=== PATIENT | female | born 1945 | race Caucasian/White ===

== ENCOUNTER → 2018-04-26 13:32 | Outpatient (CLI) | payer BC | END | disposition home or self-care (01) | LOC: D.MRI 13:32 | DX: S32.020A Wedge compression fracture of second lumbar vertebra, initial encounter for closed fracture (principal); X58.XXXA Exposure to other specified factors, initial encounter ==

== ENCOUNTER 2018-12-14 22:03 | Inpatient (IN) | payer BC, MEDICARE ==
[~2018-12-14] VITALS: Ht 167.6 cm; Wt 70.3 kg
[2018-12-14] MEDS ORDERED: ZANAFLEX4 MG PO (22:23)
[2018-12-14] MEDS ORDERED: METOPROLOL TART50 MG PO (22:23)
[2018-12-14] MEDS ORDERED: COZAAR25 MG PO (22:24)
[2018-12-14 23:21] LABS: BASOPHILS 0.2 % (0-2); EOSINOPHILS 2.3 % (0-7); HEMATOCRIT 40.7 % (36.0-48.0); HEMOGLOBIN 14.4 g/dL (12-16); LYMPHOCYTES 22.5 % (15-50); MCH 33.1 pg (26.0-34.0); MCHC 35.4 g/dL (31.0-37.0); MCV 93.6 fL (80.0-100.0); MEAN PLATELET VOLUME 10.3 fL (7.4-10.4); MONOCYTES 11.8 % (2-11); NEUTROPHILS 62.2 % (40-80); PLATELET COUNT 211 10x3/uL (130-400); RBC 4.35 10x6/uL (4.00-5.40); RDW 12.9 % (11.5-14.5); WBC 8.2 10x3/uL (4.8-10.8)
[2018-12-14 23:25] LABS: APTT 24.4 SECONDS (22.8-39.4); INR 1.02 (0.85-1.17); PROTIME 12.9 SECONDS (11.6-15.0)
[2018-12-14 23:27] VITALS: BP 94/48
[2018-12-14 23:35] LABS: ALKALINE PHOSPHATASE 88 U/L (46-116); ALT (SGPT) 109 U/L (10-68); BILIRUBIN - TOTAL 0.52 mg/dL (0.2-1.3); CALC OSMOLALITY 260 mosm/kg (275-300); CALCIUM 9.2 mg/dL (8.5-10.1); CHLORIDE - SERUM 94 mmol/L (98-107); CREATININE - SERUM 1.2 mg/dL (0.6-1.3); GLUCOSE 187 mg/dL (74-106); POTASSIUM - SERUM 3.7 mmol/L (3.5-5.1); PROTEIN - SERUM 6.9 g/dL (6.4-8.2); SODIUM 127 mmol/L (136-145); UREA NITROGEN 15 mg/dL (7-18); eGFR NON AFRICAN AMERICAN 47 mL/min (90-120)
[2018-12-14 23:40] VITALS: BP 102/69
[2018-12-14 23:46] LABS: CKMB 0.7 U/L (0.0-3.6); CREATINE KINASE 21 UL (21-215); MAGNESIUM - SERUM 1.7 mg/dL (1.8-2.4); TROPONIN-I < 0.017 ng/mL (0.000-0.060)
[2018-12-14 23:52] VITALS: BP 144/80
[2018-12-15] VITALS (10 sets, daily range): BP systolic 112–166; BP diastolic 56–81; BMI 25.0
--- NOTE | 2018-12-15 02:30 | NUR ---
PATIENT TO THE FLOOR. ASSISTED IN TRANSFERING PATIENT TO BED FROM ER BED. PATIENT UNABLE TO MOVE ALONE AT THIS TIME. PATIENT A&O X4. CALL LIGHT WITHIN REACH AND BED IN LOWEST POSITION. KHANH ALARM IS ON THE BED AND TURNED ON AT THIS TIME.
--- NOTE | 2018-12-15 04:54 | NUR ---
PATIENT LAYING IN BED AWAKE UPON ENTERING ROOM. PATIENT STATES SHE WISHES SHE COULD JUST FALL ASLEEP. PATIENT DENIES ANY NEEDS AT THIS TIME. CALL LIGHT WITHIN REACH AND BED IN LOWEST POSITION.
[2018-12-15 06:29] LABS: BASOPHILS 0.4 % (0-2); EOSINOPHILS 1.8 % (0-7); HEMATOCRIT 39.1 % (36.0-48.0); HEMOGLOBIN 13.2 g/dL (12-16); IMMATURE GRANULOCYTES 0.7 % (0-5); LYMPHOCYTES 18.3 % (15-50); MCH 31.9 pg (26.0-34.0); MCHC 33.8 g/dL (31.0-37.0); MCV 94.4 fL (80.0-100.0); MEAN PLATELET VOLUME 10.4 fL (7.4-10.4); MONOCYTES 11.1 % (2-11); NEUTROPHILS 67.7 % (40-80); PLATELET COUNT 183 10x3/uL (130-400); RBC 4.14 10x6/uL (4.00-5.40); RDW 13.2 % (11.5-14.5); WBC 8.3 10x3/uL (4.8-10.8)
[2018-12-15 06:44] LABS: CALC OSMOLALITY 264 mosm/kg (275-300); CALCIUM 8.7 mg/dL (8.5-10.1); CARBON DIOXIDE 27.1 mmol/L (21.0-32.0); CHLORIDE - SERUM 99 mmol/L (98-107); POTASSIUM - SERUM 4.2 mmol/L (3.5-5.1); SODIUM 131 mmol/L (136-145); TROPONIN-I < 0.017 ng/mL (0.000-0.060); UREA NITROGEN 16 mg/dL (7-18); eGFR NON AFRICAN AMERICAN 58 mL/min (90-120)
[2018-12-15 06:53] LABS: GLUCOSE 122 mg/dL (74-106)
--- NOTE | 2018-12-15 07:25 | NUR ---
PT RESTING IN BED, ALERT AND ORIENTED. RIB FX TO LEFT CHEST. SKIN TEAR TO LEFT ELBOW, DRESSING C/D/I. O2 @ 2L, NC. IV TO RIGHT WRIST, SL. SITE PATENT WITHOUT REDNESS OR SWELLING. C/O PAIN, GAVE NORCO FOR PAIN. NO S/S OF ACUTE DISTRESS NOTED. PT DENIES ANYTHING FURTHER AT THIS TIME. CALL LIGHT IN REACH. WILL CONTINUE TO MONITOR.
--- NOTE | 2018-12-15 16:40 | NUR ---
I have reviewed this patient and I concur with the Shift Assessment completed by the Licensed Practical Nurse today this shift.
--- NOTE | 2018-12-15 20:09 | NUR ---
PT ALERT X 4. BREATH SOUNDS CLEAR BILAT, 2L O2 PER NC. IV TO RIGHT WRIST, SALINE LOCKED. PT REPORTING PAIN OF 10/10, MEDICATED PER ORDERS, WILL MONITOR. BED LOW, CALL LIGHT IN REACH. NO OTHER NEEDS AT THIS TIME.
[2018-12-16] VITALS: BP 165/91
[2018-12-16 03:00] LABS: APPEARANCE CLEAR (CLEAR); BILIRUBIN NEGATIVE (NEGATIVE); COLOR YELLOW (YELLOW); GLUCOSE 100 mg/dL (NEGATIVE); KETONE NEGATIVE (NEGATIVE); NITRITE NEGATIVE (NEGATIVE); PROTEIN NEGATIVE (NEGATIVE); UROBILINOGEN NORMAL (NORMAL)
[2018-12-16 03:01] LABS: BACTERIA MODERATE /hpf (NONE SEEN); EPITHELIAL CELLS 0-5 /hpf (0-5); RED CELLS - URINE 0-5 /hpf (0-5)
[2018-12-16 04:00] VITALS: BP 180/105
[2018-12-16 07:28] LABS: BASOPHILS 0.1 % (0-2); EOSINOPHILS 0.3 % (0-7); HEMATOCRIT 38.8 % (36.0-48.0); HEMOGLOBIN 13.5 g/dL (12-16); IMMATURE GRANULOCYTES 0.7 % (0-5); LYMPHOCYTES 12.7 % (15-50); MCH 32.5 pg (26.0-34.0); MCHC 34.8 g/dL (31.0-37.0); MCV 93.5 fL (80.0-100.0); MEAN PLATELET VOLUME 10.7 fL (7.4-10.4); MONOCYTES 12.1 % (2-11); NEUTROPHILS 74.1 % (40-80); PLATELET COUNT 158 10x3/uL (130-400); RBC 4.15 10x6/uL (4.00-5.40); WBC 6.9 10x3/uL (4.8-10.8)
[2018-12-16 07:48] LABS: CALCIUM 8.8 mg/dL (8.5-10.1); CARBON DIOXIDE 25.6 mmol/L (21.0-32.0); CREATININE - SERUM 0.9 mg/dL (0.6-1.3); POTASSIUM - SERUM 3.6 mmol/L (3.5-5.1)
--- NOTE | 2018-12-16 07:50 | NUR ---
PT RESTING IN BED WITH EYES CLOSED. NO ACUTE DISTRESS NOTED AT THIS TIME. REPORTS PAIN 3/10 AT THIS TIME. REPORTS DISCOMFORT TO LEFT SIDE. SALINE LOC TO RIGHT WRIST, SITE WITHOUT REDNESS OR EDEMA. DENIES FURTHER NEEDS AT THIS TIME. CL WITHIN REACH. ENCOURAGED TO CALL WITH NEEDS. CONTINUE POC
[2018-12-16 08:47] VITALS: BP 156/90
[2018-12-16 14:10] VITALS: BP 149/88
[2018-12-16 16:03] VITALS: BP 148/78
[2018-12-16 20:00] VITALS: BP 159/87
--- NOTE | 2018-12-16 21:00 | NUR ---
PT COMPLAINING OF N/V GIVEN ZOFRAN WILL FALLOW UP. PT STATES SHE HAS NOT BEEN EATING THE LAST FEW DAYS BECAUSE OF THE N/V.
--- NOTE | 2018-12-16 21:30 | NUR ---
PT FEELING BETTER GIVEN JELLO SINCE HER N/V HAS STOPPED FOR THE TIME BEING. PT STATES JELLO STAYED DOWN JUST FINE NO NAUSEA AT THIS TIME.
--- NOTE | 2018-12-16 21:42 | NUR ---
PT UNABLE EXHALE 750 ON IS TX GIVEN ON METANEB DEVICE
--- NOTE | 2018-12-16 23:39 | NUR ---
CHANGED ELBOW DRESSING. PT TOLERATED WELL. SITE HAS STOPPED BLEEDING. WILL FALLOW UP.
[2018-12-17] VITALS: BP 161/82
[2018-12-17 04:00] VITALS: BP 143/80
--- NOTE | 2018-12-17 06:30 | NUR ---
I have reviewed this patient and I concur with the Shift Assessment completed by the Licensed Practical Nurse today this shift.
[2018-12-17 06:42] LABS: CALCIUM 8.1 mg/dL (8.5-10.1); CARBON DIOXIDE 28.3 mmol/L (21.0-32.0); CHLORIDE - SERUM 89 mmol/L (98-107); GLUCOSE 149 mg/dL (74-106); POTASSIUM - SERUM 3.4 mmol/L (3.5-5.1); SODIUM 124 mmol/L (136-145)
[2018-12-17 06:44] LABS: CALC OSMOLALITY 251 mosm/kg (275-300); CREATININE - SERUM 0.5 mg/dL (0.6-1.3); UREA NITROGEN 9 mg/dL (7-18); eGFR NON AFRICAN AMERICAN > 90 mL/min (90-120)
[2018-12-17 06:58] LABS: BASOPHILS 0.3 % (0-2); HEMATOCRIT 35.9 % (36.0-48.0); HEMOGLOBIN 12.7 g/dL (12-16); IMMATURE GRANULOCYTES 0.5 % (0-5); LYMPHOCYTES 14.6 % (15-50); MCH 32.3 pg (26.0-34.0); MCHC 35.4 g/dL (31.0-37.0); MEAN PLATELET VOLUME 10.8 fL (7.4-10.4); MONOCYTES 14.7 % (2-11); NEUTROPHILS 68.9 % (40-80); PLATELET COUNT 157 10x3/uL (130-400); RBC 3.93 10x6/uL (4.00-5.40); RDW 12.8 % (11.5-14.5); WBC 7.9 10x3/uL (4.8-10.8)
[2018-12-17 07:20] LABS: MCV 91.3 fL (80.0-100.0)
[2018-12-17 08:29] VITALS: BP 139/94
[2018-12-17 13:32] VITALS: BP 153/97
--- NOTE | 2018-12-17 15:45 | MORECARE ---
CASE MANAGEMENT DISCHARGE SUMMARY PATIENT: SOLEDAD ANDINO UNIT: [id number] ADM DATE: 12/17/18 AGE: 73 : [birth year] SEX: F ROOM/BED: D.2231 AUTHOR: GALE MYERS PHYSICIAN: REFERRING PHYSICIAN: WOO MAIER MD DATE OF SERVICE: 12/17/18 Discharge Plan Patient Name: SOLEDAD ANDINO Facility: [facility]:[place] : 1945 Planned Disposition: Home Anticipated Discharge Date: Discharge Date: Expected LOS: Initial Reviewer: [email or web address] Initial Review Date: 12/17/2018 Generated: 12/17/18 4:44 pm Patient Name: SOLEDAD ANDINO Page 11041 at 1549 All edits/amendments must be made on the electronic document DICTATION DATE: 12/17/18 1544 CORPORATE BANKING OFFICER: CARLENE 12/17/18 1544 RPT#: [id number] DC DATE: STATUS: ADM IN [facility] [address] [place] [address] END OF REPORT
--- NOTE | 2018-12-17 15:53 | MORECARE ---
CASE MANAGEMENT DISCHARGE SUMMARY PATIENT: SOLEDAD HERNANDEZ UNIT: [id number] ADM DATE: 12/17/18 AGE: 73 : 47 SEX: F ROOM/BED: D.2231 AUTHOR: LOUIS,DOC PHYSICIAN: REFERRING PHYSICIAN: WOO MAIER MD DATE OF SERVICE: 12/17/18 Discharge Plan Patient Name: SOLEDAD HERNANDEZ Facility: [facility]:[place] : 1945 Planned Disposition: Home Anticipated Discharge Date: Discharge Date: Expected LOS: Initial Reviewer: [email or web address] Initial Review Date: 12/17/2018 Generated: 12/17/18 4:52 pm Comments DCP- Discharge Planning Updated by [email or web address]: Liz Sinclair on 12/17/18 2:[address] Patient Name: SOLEDAD HERNANDEZ Admission Status: ER Accout number: [id number] Admission Date: 12-17-2018 : 1945 Admission Diagnosis: Attending: WOO MAIER Current LOS: 1 Anticipated DC Date: Planned Disposition: Home Primary Insurance: [employer] [facility] Discharge Planning Comments: CM met with patient to complete initial dc planning assessment. CM educated patient on the CM role and verbal consent given by patient to complete assessment. Patient's is in the room and she gives permission to speak with in room. Patient lives at home with her . At discharge patient plans to return and feels this is a safe discharge. CM discussed availability of home health, rehab services, and medical equipment. Patient denied known discharge needs at this time. I informed her if she changed her mind on home health to let case management know prior to discharge. CM will continue to follow and will assist as needed with dc plans/needs. Detail Maker And Fitter: Liz Sinclair DCPIA - Discharge Planning Initial Assessment Updated by [email or web address]: Liz Sinclair on 12/17/18 3:46 pm * Is the patient Alert and Oriented? Yes * How many steps to enter\exit or inside your home? 0/1flight * PCP Dr. Lagunas * Pharmacy [facility] * Preadmission Environment Home with Family * ADLs Independent * Equipment Elevated Tol[place] Seat Other Walker * Other Equipment Lift chair * List name and contact numbers for known caregivers / representatives who currently or will assist patient after discharge: Tru Hernandez - spouse - [phone] Hamzah Nation - son - [phone] * Verbal permission to speak to the caregivers and representatives has been obtained from the patient. Yes * Community resources currently utilized None * Additional services required to return to the preadmission environment? No * Can the patient safely return to the preadmission environment? Yes * Has this patient been hospitalized within the prior 30 days at any hospital? No Last DP export: 12/17/18 2:44 pm Patient Name: SOLEDAD HERNANDEZ Page [phone] at 1553 All edits/amendments must be made on the electronic document DICTATION DATE: 12/17/181551 DRAMATIC COACH: CARLENE 12/17/181551 RPT#: [id number] DC DATE: STATUS: ADM IN [facility] [address] [place] [address] END OF REPORT
[2018-12-17 18:19] VITALS: BP 114/61
[2018-12-17 21:13] VITALS: BP 132/80
--- NOTE | 2018-12-18 00:10 | NUR ---
PT RESTING IN BED. EYES CLOSED. NO SIGNS OF DISTRESS. BREATHING EVEN AND UNLABORED. 2LO2 NASAL CANNULA. WILL CONTINUE PLAN OF CARE. CALL LIGHT IN REACH. BED LOWERED AND LOCKED. KHANH ALARM ON. BED RAILS UP X3.
[2018-12-18 05:10] VITALS: BP 156/106
[2018-12-18 07:05] LABS: BASOPHILS 0.2 % (0-2); EOSINOPHILS 1.7 % (0-7); HEMATOCRIT 37.2 % (36.0-48.0); HEMOGLOBIN 13.6 g/dL (12-16); IMMATURE GRANULOCYTES 0.6 % (0-5); LYMPHOCYTES 12.9 % (15-50); MCH 32.9 pg (26.0-34.0); MCHC 36.6 g/dL (31.0-37.0); MCV 90.1 fL (80.0-100.0); MEAN PLATELET VOLUME 10.7 fL (7.4-10.4); MONOCYTES 13.1 % (2-11); NEUTROPHILS 71.5 % (40-80); PLATELET COUNT 180 10x3/uL (130-400); RBC 4.13 10x6/uL (4.00-5.40); RDW 12.5 % (11.5-14.5); WBC 8.1 10x3/uL (4.8-10.8)
[2018-12-18 07:20] LABS: CARBON DIOXIDE 25.4 mmol/L (21.0-32.0); CREATININE - SERUM 0.5 mg/dL (0.6-1.3); GLUCOSE 143 mg/dL (74-106); UREA NITROGEN 11 mg/dL (7-18); eGFR NON AFRICAN AMERICAN > 90 mL/min (90-120)
[2018-12-18 07:21] LABS: CALC OSMOLALITY 238 mosm/kg (275-300); CHLORIDE - SERUM 85 mmol/L (98-107)
[2018-12-18 07:22] LABS: SODIUM 118 mmol/L (136-145)
--- NOTE | 2018-12-18 08:02 | NUR ---
ALERT AND ORIENTED X 3. LUNGS CLEAR BILATERALLY IN ALL [place]. HEART SOUNDS S1 AND S2 HEARD IN ALL [place]. BOWEL SOUNDS ACTIVE X 4. SKIN INTACT WITHOUT REDNESS. STATES IS VERY NAUSEAS. PRN ZOFRAN GIVEN. VITALS TAKEN. BP 142/100. HR VARYING BETWEEN 100 TO 150. ELVA CEDILLO NOTIFIED AND STAT EKG ORDERED. TELEMETRY PLACED ON PATIENT. WILL CONTINUE MONITORING.
--- NOTE | 2018-12-18 08:06 | NUR ---
PATIENT ABLE TO TAKE LOPRESSOR BUT REFUSED OTHER AM MEDICATIONS.
--- NOTE | 2018-12-18 08:30 | NUR ---
CARDIOLOGY CONSULT PLACE AND CARDIOLOGY CALLED.
[2018-12-18 08:45] VITALS: BP 148/100
--- NOTE | 2018-12-18 08:55 | NUR ---
ELVA CEDILLO NOTIFIED PATIENT SODIUM LEVEL 118
--- NOTE | 2018-12-18 09:22 | NUR ---
PATIENT SEEN BY ELVA CEDILLO. CARDIOLOGY PAGED. WAITING CALL BACK.
--- NOTE | 2018-12-18 09:28 | NUR ---
SPOKE WITH DR BROWN PER PHONE. 0.25 DIGOXIN IV ORDERED
--- NOTE | 2018-12-18 09:57 | NUR ---
HR DECREASE FROM 136 TO 77 AFTER DIGOXIN. WILL CONTINUE TO MONITOR.
[2018-12-18 10:35] LABS: CKMB 2.5 U/L (0.0-3.6); CREATINE KINASE 51 UL (21-215); TROPONIN-I < 0.017 ng/mL (0.000-0.060)
[2018-12-18 12:41] VITALS: BP 133/78
[2018-12-18 13:04] VITALS: Ht 167.6 cm; Wt 70.3 kg
--- NOTE | 2018-12-18 13:52 | NUR ---
RESTING IN BED. DENIES PAIN. DENIES NEEDS. WILL CONTINUE TO MONITOR.
[2018-12-18 16:18] VITALS: BP 162/89
[2018-12-18 17:13] LABS: CALC OSMOLALITY 244 mosm/kg (275-300); CALCIUM 8.2 mg/dL (8.5-10.1); CARBON DIOXIDE 25.9 mmol/L (21.0-32.0); CHLORIDE - SERUM 86 mmol/L (98-107); CREATININE - SERUM 0.7 mg/dL (0.6-1.3); GLUCOSE 131 mg/dL (74-106); POTASSIUM - SERUM 4.4 mmol/L (3.5-5.1); UREA NITROGEN 21 mg/dL (7-18); eGFR NON AFRICAN AMERICAN 87 mL/min (90-120)
[2018-12-18 17:16] LABS: SODIUM 119 mmol/L (136-145)
--- NOTE | 2018-12-18 17:25 | NUR ---
SPOKE WITH DR GARCIA ABOUT PT CL SODIUM 119. STATED GIVE AN EXTRA TAB 1MG SODIUM.
[2018-12-18 17:27] LABS: CKMB 2.6 U/L (0.0-3.6); CREATINE KINASE 46 UL (21-215); TROPONIN-I 0.017 ng/mL (0.000-0.060)
[2018-12-18 19:51] VITALS: BP 152/80
--- NOTE | 2018-12-18 20:00 | NUR ---
ALERT RESTING IN BED FAMILY AT BEDSIDE, DENIES NEEDS AT THIS TIME, CALL KARUNA MILAN
--- NOTE | 2018-12-18 21:15 | NUR ---
PORSHA PERAZA WITH FAMILY, TOLERATIGN WELL
[2018-12-18 22:11] LABS: CALC OSMOLALITY 245 mosm/kg (275-300); CALCIUM 8.5 mg/dL (8.5-10.1); CARBON DIOXIDE 26.7 mmol/L (21.0-32.0); CHLORIDE - SERUM 86 mmol/L (98-107); CKMB 2.5 U/L (0.0-3.6); CREATINE KINASE 50 UL (21-215); CREATININE - SERUM 0.8 mg/dL (0.6-1.3); GLUCOSE 146 mg/dL (74-106); POTASSIUM - SERUM 4.4 mmol/L (3.5-5.1); TROPONIN-I 0.019 ng/mL (0.000-0.060); UREA NITROGEN 21 mg/dL (7-18); eGFR NON AFRICAN AMERICAN 75 mL/min (90-120)
[2018-12-18 22:17] LABS: SODIUM 119 mmol/L (136-145)
[2018-12-19 04:54] VITALS: BP 170/83
[2018-12-19 06:30] LABS: BASOPHILS 0.1 % (0-2); EOSINOPHILS 3.1 % (0-7); HEMOGLOBIN 13.1 g/dL (12-16); IMMATURE GRANULOCYTES 0.7 % (0-5); LYMPHOCYTES 13.6 % (15-50); MCH 32.8 pg (26.0-34.0); MCHC 36.4 g/dL (31.0-37.0); MCV 90.2 fL (80.0-100.0); MEAN PLATELET VOLUME 9.9 fL (7.4-10.4); MONOCYTES 13.5 % (2-11); PLATELET COUNT 185 10x3/uL (130-400); RBC 3.99 10x6/uL (4.00-5.40); RDW 12.6 % (11.5-14.5); WBC 6.7 10x3/uL (4.8-10.8)
[2018-12-19 07:01] LABS: CALC OSMOLALITY 242 mosm/kg (275-300); CARBON DIOXIDE 27.3 mmol/L (21.0-32.0); CHLORIDE - SERUM 88 mmol/L (98-107); CREATININE - SERUM 0.7 mg/dL (0.6-1.3); GLUCOSE 124 mg/dL (74-106); POTASSIUM - SERUM 3.8 mmol/L (3.5-5.1); UREA NITROGEN 17 mg/dL (7-18); eGFR NON AFRICAN AMERICAN 87 mL/min (90-120)
[2018-12-19 07:17] LABS: SODIUM 119 mmol/L (136-145)
[2018-12-19 07:47] VITALS: BP 154/89
--- NOTE | 2018-12-19 08:30 | NUR ---
PT AAOX4 RESP EVEN AND NONLABORED, NO SIGNS OF DISTRESS NOTED, FAMILY AT BEDSIDE CL IN REACH
[2018-12-19 09:47] LABS: CALC OSMOLALITY 247 mosm/kg (275-300); CARBON DIOXIDE 27.1 mmol/L (21.0-32.0); CHLORIDE - SERUM 88 mmol/L (98-107); CREATININE - SERUM 0.7 mg/dL (0.6-1.3); GLUCOSE 131 mg/dL (74-106); POTASSIUM - SERUM 3.7 mmol/L (3.5-5.1); SODIUM 121 mmol/L (136-145); UREA NITROGEN 17 mg/dL (7-18); eGFR NON AFRICAN AMERICAN 87 mL/min (90-120)
--- NOTE | 2018-12-19 10:48 | CN ---
PATIENT NAME:SOLEDAD ANDINO MEDICAL RECORD: [id number] : [birth year] LOCATION:D.MS [id number] ADMIT DATE: 12/17/18 ACCOUNT: [id number] CONSULTING PHYSICIAN: MARCELINA BROWN MD REFERRING PHYSICIAN: WOO MAIER MD DATE OF CONSULTATION: 12/18/2018 HISTORY OF PRESENT ILLNESS: A 73-year-old female with no known history of coronary artery disease. She actually was at home, had a syncopal episode. This occurred after taking her blood pressure medicine, taking a hot bath. She typically is quite stable. Easily takes care of all her ADLs. She feels that secondary to the combination as described above, today she had the onset of atrial fibrillation. Responded quite nicely to IV digoxin. She has a remote history of "leaky heart valve in the past." PAST MEDICAL HISTORY: Otherwise includes; 1. History of anxiety, by 's report severe. 2. Hypertension. ALLERGIES: None known. MEDICATIONS: Include Zanaflex 4 mg p.o. every 6 hours p.r.n., losartan 25 every day, metoprolol 25 b.i.d. SOCIAL HISTORY: . Nonsmoker. Easily takes care of all her ADLs. Does try to walk on a regular basis. REVIEW OF SYSTEMS: The patient reports easy bruising but reports no swollen glands. The patient reports no fever, no night sweats, no significant weight gain, no significant weight loss. No significant exercise tolerance. The patient reports no dry eyes, no irritation, no vision change. Patient reports no difficulty hearing and no ear pain. Patient reports no frequent nose bleeds or nose and sinus problems. Patient reports on arm pain on exertion. No shortness of breath while lying down. No history of heart murmur. Patient reports no cough, no wheezing or coughing up blood. Patient reports no abdominal pain, no vomiting. Normal appetite. No diarrhea and not vomiting blood. No nausea and no constipation. Patient reports no incontinence. No difficulty urinating. No hematuria. No increased frequency. Patient reports no muscle aches. No weakness, no arthralgias, no back pain. No swelling of the extremities. Patient reports no abnormal mole, no jaundice, no rashes. Reports no loss of consciousness. No weakness and no numbness. No seizures, dizziness, or headaches. The patient reports no depression, no sleep disturbance, feeling safe in a relationship and no alcohol abuse. Patient reports on fatigue. Reports no runny nose or sinus pressure. No itching, no hives, and no frequent sneezing. PHYSICAL EXAMINATION: GENERAL: Pleasant female, in no acute distress. VITAL SIGNS: Currently pulse 80 and regular, blood pressure 148/100. HEENT: Normocephalic, atraumatic. NECK: No bruits noted. HEART: Regular. Perhaps I/ systolic ejection murmur. LUNGS: Decreased air movement. No wheezing or evidence of consolidation. ABDOMEN: Soft, nontender. EXTREMITIES: Pulses well preserved, 2+. There is no edema. CONSULT REPORT [id number] SOLEDAD ANDINO IMPRESSION: Atrial fibrillation. Responding nicely to digoxin. This may be secondary to increased catacholmine drive from recent fall, etc. We will continue digoxin at least for the short term. Check echocardiogram study. Further recommendations based on the above. TRANSINT:[id number] Voice Confirmation ID: [id number] DOCUMENT ID: [id number] MARCELINA BROWN MD at 1048 CC: [id number] DICTATION DATE: 12/18/18 1114 BEAM SEALER: 12/18/18 1401 ADM IN [facility] [address] [place] [address]
--- NOTE | 2018-12-19 11:35 | NUR ---
TELE CALLED AND SAID PT HR WAS 137 WITH SVT'S AND PVC'S PT WAS GIVEN HER DIGOXIN SCHEDULED WILL CONTINUE TO MONITOR AND CALL THE
--- NOTE | 2018-12-19 12:45 | NUR ---
CALLED TELE AND THEY STATED PT HR WAS BACK DOWN IN THE 70'S TO 80'S
[2018-12-19 13:06] VITALS: BP 124/77
--- NOTE | 2018-12-19 16:00 | NUR ---
PT AMBULATING HALLS WITH AT THIS TIME NO SIGNS OF DISTRESS NOTED
[2018-12-19 16:18] LABS: CALC OSMOLALITY 246 mosm/kg (275-300); CALCIUM 8.3 mg/dL (8.5-10.1); CARBON DIOXIDE 27.1 mmol/L (21.0-32.0); CHLORIDE - SERUM 88 mmol/L (98-107); CREATININE - SERUM 0.6 mg/dL (0.6-1.3); GLUCOSE 119 mg/dL (74-106); SODIUM 121 mmol/L (136-145); UREA NITROGEN 19 mg/dL (7-18); eGFR NON AFRICAN AMERICAN > 90 mL/min (90-120)
[2018-12-19 17:10] VITALS: BP 153/75
--- NOTE | 2018-12-19 18:00 | NUR ---
CALLED DR GARCIA WITH EKG RESULTS AND HE WANTS THE PT TO START ON AN AMIODRONE DRIP AND CONTACT CARDIO, PAGED DR WALLACE AT THIS TIME HAVE NOT HEARD BACK AT THIS TIME, WILL GET PT TRANSFERRED TO [facility]
--- NOTE | 2018-12-19 18:45 | NUR ---
DR WALLACE CALLED BACK AND SAID HE WAS OKAY WITH WHAT DR GARCIA ORDER FOR THIS PT
--- NOTE | 2018-12-19 19:40 | NUR ---
PT TRANSFERRED TO [place] [id number] WARD
--- NOTE | 2018-12-19 19:42 | NUR ---
PT ARRIVED VIA W/C FROM MED SURG. NO DISTRESS NOTED. SR PER CM HR 101. SPOUSE AT BEDSIDE.
[2018-12-19 20:00] VITALS: BP 154/87
[2018-12-19 21:44] LABS: CALC OSMOLALITY 244 mosm/kg (275-300); CARBON DIOXIDE 28.2 mmol/L (21.0-32.0); CHLORIDE - SERUM 87 mmol/L (98-107); CREATININE - SERUM 0.7 mg/dL (0.6-1.3); GLUCOSE 125 mg/dL (74-106); POTASSIUM - SERUM 3.9 mmol/L (3.5-5.1); UREA NITROGEN 19 mg/dL (7-18); eGFR NON AFRICAN AMERICAN 87 mL/min (90-120)
[2018-12-19 21:48] LABS: SODIUM 120 mmol/L (136-145)
--- NOTE | 2018-12-19 22:38 | NUR ---
ASSESSMENT COMPLETED AT 1950 HRS. VSS. ALERT AND ORIENTED TO PERSON, PLACE AND TIME. ALLEN. IV TO L HAND AND LFA SL. LUNGS DIMINISHED IN BASES BILAT. SMALL BRUISE NOTED TO L SCAPULA. LIDOCAINE PATCHES NOTED TO L UPPER BACK. SR PER CM HR 99. CORDARONE BOLUS 150MG/100CC INITIATED 2017 HRS. HR IN 80'S SR AFTER BOLUS. Kirsten SCHAFER APN NOTIFED AT 2039 HRS THAT PT IS IN SR HR 80'S AND IF STILL WANTED CORDARONE DRIP. Kirsten SCHAFER APN STATED TO CALL CARDIOLOGY DR HATHAWAY AT 2042 HRS AND INFORMED OF SITUATION. NEW ORDERS RECEIVED AND NOTED. DIG 0.25 MG GIVEN SIVP OVER 5 MINUTES AT 2101 HRS. PM MEDS GIVEN. DRESSING TO L ELBOW CHANGED AT 2199 HRS. SKIN TEAR NOTED UNDER DRESSING. PT CURRENTLY RESTING WITH EYES CLOSED. RESP EVEN AND REGULAR. LIDOCAINE PATCHES REMOVED FROM L BACK AT PM MED PASS. SR UP X1, CALL LIGHT WITHIN REACH.
[2018-12-20] VITALS: BP 128/76
--- NOTE | 2018-12-20 00:33 | NUR ---
PT RESTING WITH EYES CLOSED. RESP EVEN AND REGULAR. SR UP X2, CALL LIGHT WITHIN REACH.
--- NOTE | 2018-12-20 02:03 | NUR ---
PT RESTING WITH EYES CLOSED. RESP EVEN AND REGULAR. SR UP X2, CALL LIGHT WITHIN REACH.
--- NOTE | 2018-12-20 04:34 | NUR ---
PT RESTING WITH EYES CLOSED. RESP EVEV AND REGULAR. SR UP X2, CALL LIGHT WITHIN REACH.
[2018-12-20 05:20] LABS: BASOPHILS 0.5 % (0-2); EOSINOPHILS 4.6 % (0-7); HEMATOCRIT 35.2 % (36.0-48.0); HEMOGLOBIN 12.6 g/dL (12-16); IMMATURE GRANULOCYTES 0.9 % (0-5); LYMPHOCYTES 24.3 % (15-50); MCH 32.5 pg (26.0-34.0); MCHC 35.8 g/dL (31.0-37.0); MCV 90.7 fL (80.0-100.0); MEAN PLATELET VOLUME 9.6 fL (7.4-10.4); MONOCYTES 15.3 % (2-11); NEUTROPHILS 54.4 % (40-80); PLATELET COUNT 204 10x3/uL (130-400); RBC 3.88 10x6/uL (4.00-5.40); RDW 12.8 % (11.5-14.5); WBC 5.8 10x3/uL (4.8-10.8)
[2018-12-20 05:30] LABS: CALC OSMOLALITY 245 mosm/kg (275-300); CALCIUM 8.2 mg/dL (8.5-10.1); CARBON DIOXIDE 27.8 mmol/L (21.0-32.0); CHLORIDE - SERUM 89 mmol/L (98-107); CREATININE - SERUM 0.7 mg/dL (0.6-1.3); GLUCOSE 92 mg/dL (74-106); POTASSIUM - SERUM 3.9 mmol/L (3.5-5.1); SODIUM 122 mmol/L (136-145); eGFR NON AFRICAN AMERICAN 87 mL/min (90-120)
[2018-12-20 05:35] LABS: UREA NITROGEN 13 mg/dL (7-18)
--- NOTE | 2018-12-20 06:24 | NUR ---
VSS THROUGHOUT NIGHT. SR PER CM. PT STATED SHE RESTED WELL DURING NIGHT. NEEDS MET; WILL CONTINUE TO MONITOR.
[2018-12-20 09:44] VITALS: BP 136/74
[2018-12-20] MEDS ORDERED: KLONOPIN0.5 MG PO (11:59)
[2018-12-20 12:37] VITALS: BP 158/88
[2018-12-20 18:52] VITALS: BP 129/86
--- NOTE | 2018-12-20 19:52 | NUR ---
RESUMING PATIENT CARE. PATIENT IS ALERT AND ORIENTED, RESTING COMFORTABLY IN BED. RESPIRATIONS ARE EVEN AND UNLABORED. NO S/S OF DISTRESS. NO C/O PAIN. CALL LIGHT WITHIN REACH. WILL CPOC.
[2018-12-20 20:00] VITALS: BP 150/82
[2018-12-21] VITALS: BP 138/82
[2018-12-21 04:30] VITALS: BP 138/59
[2018-12-21 06:11] LABS: BASOPHILS 0.5 % (0-2); EOSINOPHILS 5.9 % (0-7); HEMOGLOBIN 12.2 g/dL (12-16); IMMATURE GRANULOCYTES 1.9 % (0-5); LYMPHOCYTES 20.9 % (15-50); MCH 32.1 pg (26.0-34.0); MCHC 34.9 g/dL (31.0-37.0); MCV 92.1 fL (80.0-100.0); MEAN PLATELET VOLUME 9.9 fL (7.4-10.4); MONOCYTES 15.5 % (2-11); NEUTROPHILS 55.3 % (40-80); PLATELET COUNT 225 10x3/uL (130-400); RDW 12.9 % (11.5-14.5); WBC 5.9 10x3/uL (4.8-10.8)
[2018-12-21 06:33] LABS: ALBUMIN 2.4 g/dL (3.4-5.0); ALKALINE PHOSPHATASE 62 U/L (46-116); ALT (SGPT) 32 U/L (10-68); BILIRUBIN - TOTAL 0.69 mg/dL (0.2-1.3); CALC OSMOLALITY 246 mosm/kg (275-300); CALCIUM 8.5 mg/dL (8.5-10.1); CARBON DIOXIDE 27.6 mmol/L (21.0-32.0); CHLORIDE - SERUM 90 mmol/L (98-107); CREATININE - SERUM 0.7 mg/dL (0.6-1.3); GLUCOSE 105 mg/dL (74-106); POTASSIUM - SERUM 3.8 mmol/L (3.5-5.1); PROTEIN - SERUM 5.9 g/dL (6.4-8.2); SODIUM 122 mmol/L (136-145); UREA NITROGEN 14 mg/dL (7-18); eGFR NON AFRICAN AMERICAN 87 mL/min (90-120)
--- NOTE | 2018-12-21 07:15 | NUR ---
RECEIVED PT SITTING IN CHAIR C/O PAIN 5 TO LT BACK/SHOULDER AREA RESP UNLABORED SKIN W/D COLOR WNL WILL CONTINUE TO MONITOR
--- NOTE | 2018-12-21 09:00 | EC ---
PATIENT:SOLEDAD ANDINO DATE OF SERVICE: 12/17/18 SEX: F MEDICAL RECORD: [id number] DATE OF : [birth year] LOCATION:D.M2 D.211 AGE OF PATIENT: 73 ADMISSION DATE: 12/17/18 REFERRING PHYSICIAN: INTERPRETING PHYSICIAN: MARCELINA BROWN MD ECHOCARDIOGRAM REPORT ECHO CHARGES 4 ECHO COMPLETE Date: 12/18/18 CLINICAL DIAGNOSIS: AFIB ECHOCARDIOGRAPHIC MEASUREMENTS (adult normal given) AC root (d.<3.7cm) 2.2 cm LV Septum d (<1.2 cm> 0.8 cm Valve Excursion 1.5 cm LV Septum (systole) 1.0 cm Left Atria (s.<4.0cm> 4.2 cm LVPW d(<1.2cm) 1.2 cm RV (d.<2.3cm) 2.9 cm LVPW (sytole) 1.6 cm LV diastole(<5.6CM) 5.5 cm MV E-F(>70mm/sec) cm LV systole 4.3 cm LVOT Diameter 1.7 cm MV exc.(>10mm) cm Est.ejection fraction (50-75%) % DOPPLER: LVIT cm/sec A 86 cm/sec E 77 cm/sec LA cm/sec RVSP 31.0 mmHg LVOT 81 cm/sec AOP1/2T m/s Asc. Ao 142 cm/sec RVOT 57 cm/sec RA cm/sec PA 79 cm/sec AV Gradient Peak 8.1 mmHg AV Mean 4.7 mmHg AV Area 1.4 cm MV Gradient Peak 3.6 mmHg MV Mean 2.1 mmHg MV Area cm COMMENTS: Pull Over: [facility] Aircraft Accessories Mechanic: 3 Dr. Lechuga TAPE# PACS Pericardial Effusion N DATE OF SERVICE: Adequate 2-D echo, color-flow and spectral Doppler, and M-mode. No LVH. LV internal dimensions are normal. Wall motion is normal. EF is greater than 55%. Aortic valve is tricuspid. No evidence of stenosis by Doppler interrogation. Left atrium is minimally dilated at 4.2 cm. Mitral valve shows no prolapse. Mild MR. Right-sided chambers are grossly normal. Mild TR. ECHOCARDIOGRAM REPORT [id number] SOLEDAD ANDINO TRANSINT:[id number] Voice Confirmation ID: [id number] DOCUMENT ID: [id number] MARCELINA BROWN MD at 0900 CC: [id number] DICTATION DATE: 12/19/18 1014 GEAR LAPPING MACHINE OPERATOR: 12/19/18 1319 ADM IN [place] [id number] [place] [id number]
[2018-12-21 09:18] VITALS: BP 137/82
--- NOTE | 2018-12-21 12:09 | NUR ---
Rehab Note- Acute Inpatient Rehab prescreen order received. Noted insurance listed [employer] FEP, which is a federal Blue Cross insurance plan. Verified w/ CFO Letitia that [facility] Acute Inpatient Rehba cannot accept this form of Blue Cross insurance. Spoke w/ MICHAEL Arnold. Thank you for this referral! Meka Munroe RN CLinical Liaison, [facility] Rehab
--- NOTE | 2018-12-21 12:14 | NUR ---
Nutrition follow-up: Diet: Regular PO intake 25-50% of meals; pt with fractured ribs Labs reviewed Wt: 155# RDN following.
--- NOTE | 2018-12-21 15:03 | MORECARE ---
CASE MANAGEMENT DISCHARGE SUMMARY PATIENT: SOLEDAD HERNANDEZ UNIT: [id number] ADM DATE: 12/17/18 AGE: 73 : [birth year] SEX: F ROOM/BED: D.1270 AUTHOR: LOUIS,DOC PHYSICIAN: REFERRING PHYSICIAN: WOO MAIER MD DATE OF SERVICE: 12/21/18 Discharge Plan Patient Name: SOLEDAD HERNANDEZ Facility: [facility]:[place] : 1945 Planned Disposition: Inpatient Rehab Anticipated Discharge Date: 12/22/18 Discharge Date: Expected LOS: 5 Initial Reviewer: [email or web address] Initial Review Date: 12/17/2018 Generated: 12/21/18 4:02 pm Comments DCP- Discharge Planning Updated by [email or web address]: Liz Sinclair on 12/17/18 2:[address] Patient Name: SOLEDAD HERNANDEZ Admission Status: ER Accout number: [id number] Admission Date: 12-17-2018 : 1945 Admission Diagnosis: Attending: WOO MAIER Current LOS: 1 Anticipated DC Date: Planned Disposition: Home Primary Insurance: [employer] [facility] Discharge Planning Comments: CM met with patient to complete initial dc planning assessment. CM educated patient on the CM role and verbal consent given by patient to complete assessment. Patient's is in the room and she gives permission to speak with in room. Patient lives at home with her . At discharge patient plans to return and feels this is a safe discharge. CM discussed availability of home health, rehab services, and medical equipment. Patient denied known discharge needs at this time. I informed her if she changed her mind on home health to let case management know prior to discharge. CM will continue to follow and will assist as needed with dc plans/needs. Child Care Assistant: Liz Sinclair DCPIA - Discharge Planning Initial Assessment Updated by [email or web address]: Liz Sinclair on 12/17/18 3:46 pm * Is the patient Alert and Oriented? Yes * How many steps to enter\exit or inside your home? 0/1flight * PCP Dr. Lagunas * Pharmacy [facility] [address] * Preadmission Environment Home with Family * ADLs Independent * Equipment Elevated [place] Seat Other Walker * Other Equipment Lift chair * List name and contact numbers for known caregivers / representatives who currently or will assist patient after discharge: Tru Hernandez - spouse - [phone] Hamzah Nation - son - [phone] * Verbal permission to speak to the caregivers and representatives has been obtained from the patient. Yes * Community resources currently utilized None * Additional services required to return to the preadmission environment? No * Can the patient safely return to the preadmission environment? Yes * Has this patient been hospitalized within the prior 30 days at any hospital? No External Providers External Provider: [facility] Next Contact Date: 12/21/2018 Service Request Date: Service Type: Resolution: Reviewer: Comments: Last DP export: 12/17/18 2:53 pm Patient Name: SOLEDAD HERNANDEZ Page [id number] at 1503 All edits/amendments must be made on the electronic document DICTATION DATE: 12/21/18 1502 COST CONTROLLER: CARLENE 12/21/18 1502 RPT#: [id number] DC DATE: STATUS: ADM IN [facility] [address] [place] [address] END OF REPORT
[2018-12-21 15:57] VITALS: BP 169/63
[2018-12-21 18:49] VITALS: BP 145/70
--- NOTE | 2018-12-21 19:32 | NUR ---
RESUMING PATIENT CARE. PATIENT IS ALERT AND ORIENTED, RESTING COMFORTABLY IN BED. RESPIRATIONS ARE EVEN AND UNLABORED. NO S/S OF DISTRESS. NO C/O PAIN. DENIES NEEDS AT THIS TIME. CALL LIGHT WITHIN REACH. WILL CPOC.
[2018-12-22] VITALS: BP 141/76
[2018-12-22 02:42] LABS: APPEARANCE CLEAR (CLEAR); BILIRUBIN NEGATIVE (NEGATIVE); COLOR YELLOW (YELLOW); GLUCOSE NEGATIVE (NEGATIVE); KETONE NEGATIVE (NEGATIVE); NITRITE NEGATIVE (NEGATIVE); PROTEIN NEGATIVE (NEGATIVE); SPECIFIC GRAVITY 1.015 (1.005-1.020); UROBILINOGEN NORMAL (NORMAL)
[2018-12-22 02:43] LABS: BACTERIA FEW /hpf (NONE SEEN); EPITHELIAL CELLS 0-5 /hpf (0-5); RED CELLS - URINE 0-5 /hpf (0-5); WHITE CELLS - URINE 0-5 /hpf (0-5)
[2018-12-22 07:08] LABS: BASOPHILS 0.6 % (0-2); EOSINOPHILS 4.9 % (0-7); IMMATURE GRANULOCYTES 4.3 % (0-5); MCH 32.1 pg (26.0-34.0); MCHC 34.3 g/dL (31.0-37.0); MCV 93.6 fL (80.0-100.0); MEAN PLATELET VOLUME 9.4 fL (7.4-10.4); MONOCYTES 15.5 % (2-11); NEUTROPHILS 51.7 % (40-80); PLATELET COUNT 220 10x3/uL (130-400); RBC 3.74 10x6/uL (4.00-5.40); RDW 13.2 % (11.5-14.5); WBC 5.1 10x3/uL (4.8-10.8)
[2018-12-22 07:31] LABS: ALBUMIN 2.3 g/dL (3.4-5.0); ALKALINE PHOSPHATASE 63 U/L (46-116); ALT (SGPT) 26 U/L (10-68); BILIRUBIN - TOTAL 0.58 mg/dL (0.2-1.3); CALC OSMOLALITY 259 mosm/kg (275-300); CALCIUM 8.5 mg/dL (8.5-10.1); CARBON DIOXIDE 28.5 mmol/L (21.0-32.0); CHLORIDE - SERUM 95 mmol/L (98-107); CREATININE - SERUM 0.7 mg/dL (0.6-1.3); GLUCOSE 98 mg/dL (74-106); POTASSIUM - SERUM 3.9 mmol/L (3.5-5.1); SODIUM 129 mmol/L (136-145); UREA NITROGEN 16 mg/dL (7-18); eGFR NON AFRICAN AMERICAN 87 mL/min (90-120)
[2018-12-22 08:41] VITALS: BP 172/87
--- NOTE | 2018-12-22 09:23 | NUR ---
TELEMETRY SR. AMBULATES HALLWAY WITH . WILL CONT. PLAN OF CARE.
[2018-12-22 12:42] VITALS: BP 131/64
[2018-12-22] MEDS ORDERED: Lanoxin PO (13:34)
[2018-12-22] MEDS ORDERED: ALBUTEROL2.5 MG/3 M INH ×2 (13:34)
[2018-12-22] MEDS ORDERED: ROBAXIN500 MG PO (13:34)
[2018-12-22] MEDS ORDERED: TESSALON PERLE100 MG PO (13:35)
[2018-12-22] MEDS ORDERED: THERMOTABS 1 GM1 GM PO (13:35)
[2018-12-22] MEDS ORDERED: MUCINEX DM ER1 EAC1 PO (13:35)
[2018-12-22] MEDS ORDERED: COLACE100 MG PO (13:36)
[2018-12-22] MEDS ORDERED: LIDODERM 5 %1 PATCH TRANSDERM (13:36)
[2018-12-22] MEDS ORDERED: MIRALAX17 GM PO (13:36)
[2018-12-22] MEDS ORDERED: PROTONIX40 MG PO (13:36)
--- NOTE | 2018-12-22 15:16 | MORECARE ---
CASE MANAGEMENT DISCHARGE SUMMARY PATIENT: SOLEDAD HERNANDEZ UNIT: [id number] ADM DATE: 12/17/18 AGE: 73 : [birth year] SEX: F ROOM/BED: D.8938 AUTHOR: LOUIS,DOC PHYSICIAN: REFERRING PHYSICIAN: WOO MAIER MD DATE OF SERVICE: 12/22/18 Discharge Plan Patient Name: SOLEDAD HERNANDEZ Facility: [facility]:[place] : 1945 Planned Disposition: Inpatient Rehab Anticipated Discharge Date: 12/22/18 Discharge Date: Expected LOS: 5 Initial Reviewer: [email or web address] Initial Review Date: 12/17/2018 Generated: 12/22/18 4:16 pm DCP- Discharge Planning Updated by [email or web address]: Liz Sinclair on 12/17/18 2:[address] Patient Name: SOLEDAD HERNANDEZ Admission Status: ER Accout number: [id number] Admission Date: 12-17-2018 : 1945 Admission Diagnosis: Attending: WOO MAIER Current LOS: 1 Anticipated DC Date: Planned Disposition: Home Primary Insurance: [employer] [facility] Discharge Planning Comments: CM met with patient to complete initial dc planning assessment. CM educated patient on the CM role and verbal consent given by patient to complete assessment. Patient's is in the room and she gives permission to speak with in room. Patient lives at home with her . At discharge patient plans to return and feels this is a safe discharge. CM discussed availability of home health, rehab services, and medical equipment. Patient denied known discharge needs at this time. I informed her if she changed her mind on home health to let case management know prior to discharge. CM will continue to follow and will assist as needed with dc plans/needs. Cafe Manager: Liz Sinclair DCPIA - Discharge Planning Initial Assessment Updated by [email or web address]: Liz Sinclair on 12/17/18 3:46 pm * Is the patient Alert and Oriented? Yes * How many steps to enter\exit or inside your home? 0/1flight * PCP Dr. Lagunas * Pharmacy [facility] [address] * Preadmission Environment Home with Family * ADLs Independent * Equipment Elevated [place] Seat Other Walker * Other Equipment Lift chair * List name and contact numbers for known caregivers / representatives who currently or will assist patient after discharge: Tru Hernandez - spouse - [phone] Hamzah Nation - son - [phone] * Verbal permission to speak to the caregivers and representatives has been obtained from the patient. Yes * Community resources currently utilized None * Additional services required to return to the preadmission environment? No * Can the patient safely return to the preadmission environment? Yes * Has this patient been hospitalized within the prior 30 days at any hospital? No Coverage Notice Reviewer: [email or web address] Richard Barker Notice Issued Date-Time: 12/21/2018 14:27 Notice Type: IM Discharge Notice Notice Delivered To: Patient Relationship to Patient: Ship Officer Name: Delivery Method: HAND - Hand Delivered Tonja Days: Prior Verbal Notification: Recipient Understood Notice: Yes Recipient Signature: Yes Med Rec Note Co-signed by Attending: Coverage Notice Comment: Last DP export: 12/21/18 2:02 pm Patient Name: SOLEDAD HERNANDEZ Page [id number] at 1516 All edits/amendments must be made on the electronic document DICTATION DATE: 12/22/181515 FISHER SWORDFISH: CARLENE 12/22/181515 RPT#: [id number] DC DATE: STATUS: ADM IN [facility] [address] [place] [address] END OF REPORT
--- NOTE | 2018-12-22 15:26 | MORECARE ---
CASE MANAGEMENT DISCHARGE SUMMARY PATIENT: SOLEDAD HERNANDEZ UNIT: [id number] ADM DATE: 12/17/18 AGE: 73 : [birth year] SEX: F ROOM/BED: D.9660 AUTHOR: LOUIS,DOC PHYSICIAN: REFERRING PHYSICIAN: WOO MAIER MD DATE OF SERVICE: 12/22/18 Discharge Plan Patient Name: SOLEDAD HERNANDEZ Facility: [facility]:[place] : 1945 Planned Disposition: Inpatient Rehab Anticipated Discharge Date: 12/22/18 Discharge Date: Expected LOS: 5 Initial Reviewer: [email or web address] Initial Review Date: 12/17/2018 Generated: 12/22/18 4:26 pm Comments DCP- Discharge Planning Updated by [email or web address]: Damion Watson on 12/22/18 2:[address] Patient Name: SOLEDAD HERNANDEZ Encounter No: [id number] : 1945 Primary Insurance: [employer] [facility] Anticipated DC Date: 12-22-2018 Planned Disposition: Inpatient Rehab External Planned Provider: [facility] DCP follow-up note: CM RECEIVED DISCHARGE ORDERS, CALLED AND SPOKE TO [facility], THEY WILL ACCEPT PT TODAY AND WILL CALL CM WHEN DISCHARGE INFORMATION IS RECEIVED. PT NOTIFIED AND IN AGREEMENT WITH [facility]. CM FAXED DISCHARGE INFORMATION TO [facility], . [facility] WILL CALL SHORTLY WITH ROOM NUMBER, PHONE NUMBER FOR NURSAE REPORT AND ARRANGE VAN ENAMEL PULVERIZER TODAY. DAMION WATSON CASE MANAGEMENT Appended by Damion Watson on 12/22/2018 15:25 CDT: CM RECEIVED CALL FROM [facility], PT WILL ADMIT TO ROOM 110, NUMBER FOR NURSE REPORT IS [phone], VAN ENAMEL PULVERIZER AT 4PM. PT AND BEDSIDE NURSE NOTIFIED. DENYS SEXTON DCP- Discharge Planning Updated by [email or web address]: Liz Sinclair on 12/17/18 2:[address] Patient Name: SOLEDAD HERNANDEZ Admission Status: ER Accout number: [id number] Admission Date: 12-17-2018 : 1945 Admission Diagnosis: Attending: WOO MAIER Current LOS: 1 Anticipated DC Date: Planned Disposition: Home Primary Insurance: [employer] [facility] Discharge Planning Comments: CM met with patient to complete initial dc planning assessment. CM educated patient on the CM role and verbal consent given by patient to complete assessment. Patient's is in the room and she gives permission to speak with in room. Patient lives at home with her . At discharge patient plans to return and feels this is a safe discharge. CM discussed availability of home health, rehab services, and medical equipment. Patient denied known discharge needs at this time. I informed her if she changed her mind on home health to let case management know prior to discharge. CM will continue to follow and will assist as needed with dc plans/needs. Tobacco Roller: Liz Sinclair DCPIA - Discharge Planning Initial Assessment Updated by [email or web address]: Liz Sinclair on 12/17/18 3:46 pm * Is the patient Alert and Oriented? Yes * How many steps to enter\exit or inside your home? 0/1flight * PCP Dr. Lagunas * Pharmacy [facility] on [facility] * Preadmission Environment Home with Family * ADLs Independent * Equipment Elevated Toliet Seat Other Walker * Other Equipment Lift chair * List name and contact numbers for known caregivers / representatives who currently or will assist patient after discharge: Tru Hernandez - spouse - [phone] Hamzah Nation - son - [phone] * Verbal permission to speak to the caregivers and representatives has been obtained from the patient. Yes * Community resources currently utilized None * Additional services required to return to the preadmission environment? No * Can the patient safely return to the preadmission environment? Yes * Has this patient been hospitalized within the prior 30 days at any hospital? No Coverage Notice Reviewer: [id number] - Damion Watson Notice Issued Date-Time: 12/21/2018 14:27 Notice Type: IM Discharge Notice Notice Delivered To: Patient Relationship to Patient: It Operations Specialist Name: Delivery Method: HAND - Hand Delivered Tonja Days: Prior Verbal Notification: Recipient Understood Notice: Yes Recipient Signature: Yes Med Rec Note Co-signed by Attending: Coverage Notice Comment: Last DP export: 12/22/18 2:16 p Patient Name: SOLEDAD HERNANDEZ Page 04684 at 1526 All edits/amendments must be made on the electronic document DICTATION DATE: 12/22/181525 ASSOCIATE PROFESSOR OF RADIOLOGY: CARLENE 12/22/181525 RPT#: [id number] DC DATE: STATUS: ADM IN [facility] [address] [place] [address] END OF REPORT
--- NOTE | 2018-12-22 15:44 | MORECARE ---
CASE MANAGEMENT DISCHARGE SUMMARY PATIENT: SOLEDAD HERNANDEZ UNIT: [id number] ADM DATE: 12/17/18 AGE: 73 : [birth year] SEX: F ROOM/BED: D.5519 AUTHOR: LOUIS,DOC PHYSICIAN: REFERRING PHYSICIAN: WOO MAIER MD DATE OF SERVICE: 12/22/18 Discharge Plan Patient Name: SOLEDAD HERNANDEZ Facility: [facility]:[place] : 1945 Planned Disposition: Inpatient Rehab Anticipated Discharge Date: 12/22/18 Discharge Date: Expected LOS: 5 Initial Reviewer: [email or web address] Initial Review Date: 12/17/2018 Generated: 12/22/18 4:44 pm Comments DCP- Discharge Planning Updated by [email or web address]: Damion Watson on 12/22/18 2:[address] Patient Name: SOLEDAD HERNANDEZ Encounter No: [id number] : 1945 Primary Insurance: [employer] [facility] Anticipated DC Date: 12-22-2018 Planned Disposition: Inpatient Rehab External Planned Provider: [facility] DCP follow-up note: CM RECEIVED DISCHARGE ORDERS, CALLED AND SPOKE TO [facility], THEY WILL ACCEPT PT TODAY AND WILL CALL CM WHEN DISCHARGE INFORMATION IS RECEIVED. PT NOTIFIED AND IN AGREEMENT WITH DISCHARGE TODAY TO [facility]. CM FAXED DISCHARGE INFORMATION TO [facility], . [facility] WILL CALL SHORTLY WITH ROOM NUMBER, PHONE NUMBER FOR NURSAE REPORT AND ARRANGE VAN STEWARD/STEWARDESS TODAY. DAMION WATSON CASE MANAGEMENT Appended by Damion Watson on 12/22/2018 15:25 CDT: CM RECEIVED CALL FROM [facility], PT WILL ADMIT TO ROOM 110, NUMBER FOR NURSE REPORT IS [phone], VAN STEWARD/STEWARDESS AT 4PM. PT AND BEDSIDE NURSE NOTIFIED. DAMION WATSON CASE MANAGEMENT Appended by Damion Watson on 12/22/2018 15:35 CDT: CM RECEIVED CALL FROM [facility], PT WILL ADMIT TO ROOM 311, NUMBER FOR NURSE REPORT IS [phone], VAN STEWARD/STEWARDESS AT 4PM. PT AND BEDSIDE NURSE NOTIFIED. DAMION SHIRLEY, CASE MANAGEMENT DCP- Discharge Planning Updated by [id number]: Liz Sinclair on 12/17/18 2:[address] Patient Name: SOLEDAD HERNANDEZ Admission Status: ER Accout number: [id number] Admission Date: 12-17-2018 : 1945 Admission Diagnosis: Attending: WOO MAIER Current LOS: 1 Anticipated DC Date: Planned Disposition: Home Primary Insurance: [employer] Discharge Planning Comments: CM met with patient to complete initial dc planning assessment. CM educated patient on the CM role and verbal consent given by patient to complete assessment. Patient's is in the room and she gives permission to speak with in room. Patient lives at home with her . At discharge patient plans to return and feels this is a safe discharge. CM discussed availability of home health, rehab services, and medical equipment. Patient denied known discharge needs at this time. I informed her if she changed her mind on home health to let case management know prior to discharge. CM will continue to follow and will assist as needed with dc plans/needs. Carpenter Foreman: Liz Lesliebianka DCPIA - Discharge Planning Initial Assessment Updated by [email or web address]: Liz Sinclair on 12/17/18 3:46 pm * Is the patient Alert and Oriented? Yes * How many steps to enter\exit or inside your home? 0/1flight * PCP Dr. Lagunas * Pharmacy [facility] on [facility] * Preadmission Environment Home with Family * ADLs Independent * Equipment Elevated Toliet Seat Other Walker * Other Equipment Lift chair * List name and contact numbers for known caregivers / representatives who currently or will assist patient after discharge: Tru Hernandez - spouse - [phone] Hamzah Nation - son - [phone] * Verbal permission to speak to the caregivers and representatives has been obtained from the patient. Yes * Community resources currently utilized None * Additional services required to return to the preadmission environment? No * Can the patient safely return to the preadmission environment? Yes * Has this patient been hospitalized within the prior 30 days at any hospital? No Coverage Notice Reviewer: [id number] - Damion Watson Notice Issued Date-Time: 12/21/2018 14:27 Notice Type: IM Discharge Notice Notice Delivered To: Patient Relationship to Patient: Implementation Engineer Name: Delivery Method: HAND - Hand Delivered Tonja Days: Prior Verbal Notification: Recipient Understood Notice: Yes Recipient Signature: Yes Med Rec Note Co-signed by Attending: Coverage Notice Comment: Last DP export: 12/22/18 2:26 p Patient Name: SOLEDAD HERNANDEZ Page [id number] at 1544 All edits/amendments must be made on the electronic document DICTATION DATE: 12/22/181543 SDET: CARLENE 12/22/181543 RPT#: [id number] DC DATE: STATUS: ADM IN [facility] [address] [place] [address] END OF REPORT
--- NOTE | 2018-12-22 15:49 | NUR ---
REPORT AND DC PLANS CALLED TO [facility]AB [facility].
--- NOTE | 2018-12-22 16:06 | MORECARE ---
CASE MANAGEMENT DISCHARGE SUMMARY PATIENT: SOLEDAD HERNANDEZ UNIT: [id number] ADM DATE: 12/17/18 AGE: 73 : [birth year] SEX: F ROOM/BED: D.2202 AUTHOR: LOUIS,DOC PHYSICIAN: REFERRING PHYSICIAN: WOO MAIER MD DATE OF SERVICE: 12/22/18 Discharge Plan Patient Name: SOLEDAD HERNANDEZ Facility: [facility]:[place] : 1945 Planned Disposition: Inpatient Rehab Anticipated Discharge Date: 12/22/18 Discharge Date: Expected LOS: 5 Initial Reviewer: [email or web address] Initial Review Date: 12/17/2018 Generated: 12/22/18 5:05 pm Comments DCP- Discharge Planning Updated by [email or web address]: Damion Watson on 12/22/18 2:[address] Patient Name: SOLEDAD HERNANDEZ Encounter No: [id number] : 1945 Primary Insurance: [employer] [facility] Anticipated DC Date: 12-22-2018 Planned Disposition: Inpatient Rehab External Planned Provider: [facility] DCP follow-up note: CM RECEIVED DISCHARGE ORDERS, CALLED AND SPOKE TO [facility], THEY WILL ACCEPT PT TODAY AND WILL CALL CM WHEN DISCHARGE INFORMATION IS RECEIVED. PT NOTIFIED AND IN AGREEMENT WITH [facility]GE TODAY [facility]. CM FAXED DISCHARGE INFORMATION [facility], . [facility] WILL CALL SHORTLY WITH ROOM NUMBER, PHONE NUMBER FOR NURSAE REPORT AND ARRANGE VAN SOLID WASTE DIVISION SUPERVISOR TODAY. DAMION WATSON CASE MANAGEMENT Appended by Damion Watson on 12/22/2018 15:25 CDT: CM RECEIVED CALL FROM [facility], PT WILL ADMIT TO ROOM 110, NUMBER FOR NURSE REPORT IS [phone], VAN SOLID WASTE DIVISION SUPERVISOR AT 4PM. PT AND BEDSIDE NURSE NOTIFIED. DAMION WATSON CASE MANAGEMENT Appended by Damion Watson on 12/22/2018 15:35 CDT: CM RECEIVED CALL FROM [facility], PT WILL ADMIT TO ROOM 311, NUMBER FOR NURSE REPORT IS [phone], VAN SOLID WASTE DIVISION SUPERVISOR AT 4PM. PT AND BEDSIDE NURSE NOTIFIED. DAMION SHIRLEY, CASE MANAGEMENT DCP- Discharge Planning Updated by [email or web address]: iLz Sinclair on 12/17/18 2:[address] Patient Name: SOLEDAD HERNANDEZ Admission Status: ER Accout number: [id number] Admission Date: 12-17-2018 : 1945 Admission Diagnosis: Attending: WOO MAIER Current LOS: 1 Anticipated DC Date: Planned Disposition: Home Primary Insurance: [employer] [facility] Discharge Planning Comments: CM met with patient to complete initial dc planning assessment. CM educated patient on the CM role and verbal consent given by patient to complete assessment. Patient's is in the room and she gives permission to speak with in room. Patient lives at home with her . At discharge patient plans to return and feels this is a safe discharge. CM discussed availability of home health, rehab services, and medical equipment. Patient denied known discharge needs at this time. I informed her if she changed her mind on home health to let case management know prior to discharge. CM will continue to follow and will assist as needed with dc plans/needs. Ornamental Ironworker: Liz Lesliebianka DCPIA - Discharge Planning Initial Assessment Updated by [email or web address]: Liz Sinclair on 12/17/18 3:46 pm * Is the patient Alert and Oriented? Yes * How many steps to enter\exit or inside your home? 0/1flight * PCP Dr. Lagunas * Pharmacy [facility] on [facility] * Preadmission Environment Home with Family * ADLs Independent * Equipment Elevated Toliet Seat Other Walker * Other Equipment Lift chair * List name and contact numbers for known caregivers / representatives who currently or will assist patient after discharge: Tru Hernandez - spouse - [phone] Hamzah Nation - son - [phone] * Verbal permission to speak to the caregivers and representatives has been obtained from the patient. Yes * Community resources currently utilized None * Additional services required to return to the preadmission environment? No * Can the patient safely return to the preadmission environment? Yes * Has this patient been hospitalized within the prior 30 days at any hospital? No Coverage Notice Reviewer: [id number] - Damion Watson Notice Issued Date-Time: 12/21/2018 14:27 Notice Type: IM Discharge Notice Notice Delivered To: Patient Relationship to Patient: Asset Recovery Specialist Name: Delivery Method: HAND - Hand Delivered Tonja Days: Prior Verbal Notification: Recipient Understood Notice: Yes Recipient Signature: Yes Med Rec Note Co-signed by Attending: Coverage Notice Comment: Last DP export: 12/22/18 2:44 p Patient Name: SOLEDAD HERNANDEZ Page 55638 at 1606 All edits/amendments must be made on the electronic document DICTATION DATE: 12/22/181604 VOTING MACHINE REPAIRER: CARLENE 12/22/181604 RPT#: [id number] DC DATE: STATUS: ADM IN [facility] [address] [place] [address] END OF REPORT
--- NOTE | 2018-12-22 16:27 | NUR ---
LEAVING HOSP BY Alvino IGLESIAS
== END 2018-12-22 16:28 | DRG 189 ==
LOC: D.ER 22:03 → D.MS 12-15 00:50 → OBSVTIME 12-15 00:50 → D.MS 12-15 01:50 → D.M2 12-17 14:48
PROVIDERS: Family Medicine; Family Medicine Adult Medicine; Internal Medicine Nephrology; ADMIT Internal Medicine Nephrology; ATTEND Internal Medicine Nephrology
DX: J96.01 Acute respiratory failure with hypoxia (principal); S22.42XA Multiple fractures of ribs, left side, initial encounter for closed fracture; N39.0 Urinary tract infection, site not specified; E87.1 Hypo-osmolality and hyponatremia; J98.11 Atelectasis; I95.9 Hypotension, unspecified; I10 Essential (primary) hypertension; I77.810 Thoracic aortic ectasia; N20.0 Calculus of kidney; F41.9 Anxiety disorder, unspecified; K21.9 Gastro-esophageal reflux disease without esophagitis; I48.91 Unspecified atrial fibrillation; B96.20 Unspecified Escherichia coli [E. coli] as the cause of diseases classified elsewhere; R55 Syncope and collapse

== ENCOUNTER 2019-01-11 20:22 | Observation (INO) | payer BC, MEDICARE ==
[~2019-01-11] VITALS: Ht 167.6 cm; Wt 70.3 kg
--- NOTE | ~2019-01-11 | EC ---
PATIENT:SOLEDAD ANDINO DATE OF SERVICE: 01/11/19 SEX: F MEDICAL RECORD: [id number] DATE OF : [birth year] LOCATION:D.[facility] AGE OF PATIENT: 73 ADMISSION DATE: 01/11/19 REFERRING PHYSICIAN: INTERPRETING PHYSICIAN: SHARON PEREZ MD ECHOCARDIOGRAM REPORT ECHO CHARGES 5 ECHO LIMITED Date: 01/12/19 CLINICAL DIAGNOSIS: TIA ECHOCARDIOGRAPHIC MEASUREMENTS (adult normal given) AC root (d.<3.7cm) 0 cm LV Septum d (<1.2 cm> 0 cm Valve Excursion 0 cm LV Septum (systole) 0 cm Left Atria (s.<4.0cm> 0 cm LVPW d(<1.2cm) 0 cm RV (d.<2.3cm) 0 cm LVPW (sytole) 0 cm LV diastole(<5.6CM) 0 cm MV E-F(>70mm/sec) 0 cm LV systole 0 cm LVOT Diameter 0 cm MV exc.(>10mm) 0 cm Est.ejection fraction (50-75%) % DOPPLER: LVIT cm/sec A 0 cm/sec E 0 cm/sec LA cm/sec RVSP 23.4 mmHg LVOT 0 cm/sec AOP1/2T m/s Asc. Ao 0 cm/sec RVOT 0 cm/sec RA 0 cm/sec PA 0 cm/sec AV Gradient Peak 0 mmHg AV Mean 0 mmHg AV Area 0 cm MV Gradient Peak 0 mmHg MV Mean 0 mmHg MV Area 0 cm COMMENTS: Clean Rice Grader And Reel Tender: Erasmo HARRIS Ict Systems Test Engineer: Troy Perez TAPE# PACS Pericardial Effusion N DATE OF SERVICE: 01/12/2019 PROCEDURE: Limited echo. FINDINGS: 1. Left ventricular chamber size is within normal limits. Left ventricular systolic function lower limits of normal at 45% to 50%. 2. Left atrium, right atrium, and right ventricular chamber sizes are within normal limits. 3. Valvular structures have normal structure and motion. ECHOCARDIOGRAM REPORT [id number] SOLEDAD ANDINO 4. Doppler interrogation reveals [id number] aortic insufficiency, mild mitral regurgitation, mild tricuspid regurgitation, no other valvular insufficiency or stenosis. Pulmonary systolic pressure is estimated at 24 mmHg. 5. No evidence of pericardial effusion or left ventricular thrombus. TRANSINT:[id number] Voice Confirmation ID: [id number] DOCUMENT ID: [id number] SHARON PEREZ MD CC: [id number] DICTATION DATE: 01/12/19 1154 CAREER SERVICES OFFICER: 01/12/19 1204 ADM IN [place] [id number] [place] [id number]
[~2019-01-11 20:22] MED LIST: ALBUTEROL2.5 MG/3 M INH; COLACE100 MG PO; COZAAR25 MG PO; KLONOPIN0.5 MG PO; LIDODERM 5 %1 PATCH TRANSDERM; Lanoxin PO; METOPROLOL TART50 MG PO; MIRALAX17 GM PO; MUCINEX DM ER1 EAC1 PO; PROTONIX40 MG PO; ROBAXIN500 MG PO; TESSALON PERLE100 MG PO; THERMOTABS 1 GM1 GM PO; ZANAFLEX4 MG PO
[2019-01-11 20:30] VITALS: BP 138/69
[2019-01-11] MEDS ORDERED: ZANAFLEX4 MG PO (20:30)
[2019-01-11] MEDS ORDERED: COZAAR50 MG PO (20:30)
--- NOTE | 2019-01-11 20:30 | NUR ---
PATIENT HERE BY POV, PT CONFUSED, SPEECH SLURRED. IV 20G SITED TO LEFT FA, 18G IV SITED TO LEFT FA, TOLERATED WELL.
[2019-01-11 20:32] VITALS: BP 152/82
--- NOTE | 2019-01-11 20:32 | NUR ---
AWAKE AND ALERT, CONFUSED, WITH SLURRED SPEECH. SENT TO CT VIA STRETCHER.
[2019-01-11 20:45] VITALS: BP 131/69
--- NOTE | 2019-01-11 21:04 | NUR ---
lost connection with [facility]
--- NOTE | 2019-01-11 21:04 | NUR ---
tank called back
--- NOTE | 2019-01-11 21:10 | NUR ---
DR. DE LA GARZA GAVE A 0 FOR THE NIHSS SCALE.
--- NOTE | 2019-01-11 21:13 | NUR ---
RECOMMENDATION TO NOT GIVE TPA WAS GIVEN PER DR. DE LA GARZA. DR. PITTS WILL ADMIT FOR OBSERVATION.
[2019-01-11 21:24] LABS: BASOPHILS 0.6 % (0-2); EOSINOPHILS 2.7 % (0-7); HEMOGLOBIN 14.2 g/dL (12-16); IMMATURE GRANULOCYTES 0.9 % (0-5); LYMPHOCYTES 32.5 % (15-50); MCH 32.3 pg (26.0-34.0); MCHC 34.6 g/dL (31.0-37.0); MCV 93.4 fL (80.0-100.0); MEAN PLATELET VOLUME 10.2 fL (7.4-10.4); MONOCYTES 18.5 % (2-11); NEUTROPHILS 44.8 % (40-80); PLATELET COUNT 287 10x3/uL (130-400); RBC 4.39 10x6/uL (4.00-5.40); RDW 14.1 % (11.5-14.5); WBC 6.8 10x3/uL (4.8-10.8)
[2019-01-11 21:30] LABS: ALBUMIN 3.2 g/dL (3.4-5.0); ALKALINE PHOSPHATASE 131 U/L (46-116); ALT (SGPT) 21 U/L (10-68); CALC OSMOLALITY 280 mosm/kg (275-300); CALCIUM 9.3 mg/dL (8.5-10.1); CARBON DIOXIDE 29.5 mmol/L (21.0-32.0); CHLORIDE - SERUM 100 mmol/L (98-107); CREATININE - SERUM 1.2 mg/dL (0.6-1.3); POTASSIUM - SERUM 3.4 mmol/L (3.5-5.1); SODIUM 138 mmol/L (136-145); UREA NITROGEN 12 mg/dL (7-18); eGFR NON AFRICAN AMERICAN 47 mL/min (90-120)
[2019-01-11 21:31] LABS: GLUCOSE 183 mg/dL (74-106)
[2019-01-11 21:34] LABS: APTT 26.9 SECONDS (22.8-39.4)
[2019-01-11 21:38] LABS: CKMB 0.5 U/L (0.0-3.6); CREATINE KINASE 24 UL (21-215); MAGNESIUM - SERUM 1.6 mg/dL (1.8-2.4); THYROID STIMULATING HORMONE 2.13 uIU/mL (0.36-3.74); TROPONIN-I 0.022 ng/mL (0.000-0.060)
[2019-01-11 21:58] LABS: INR 1.07 (0.85-1.17); PROTIME 13.4 SECONDS (11.6-15.0)
--- NOTE | 2019-01-11 22:04 | NUR ---
FAZAL CALLED SPOKE WITH NURSE MCCORD AND DR DE LA GARZA. STROKE EXAM COMPLETED TOLERATED, WELL.
[2019-01-11 23:57] LABS: CHOL - HDL RATIO 4.3 ratio (2.3-4.1); LDL-HDL RATIO 2.7 ratio (1.5-3.5)
--- NOTE | 2019-01-12 00:15 | NUR ---
RECIEVED TO ROOM, ALERT SPEECH SLIGHTLY SLURRED, CONFUSED AT TIMES HAVING DIFFICULTY MAINTAINING TRAIN OF THOUGHT, REMEMBERS BEING HERE A COUPLE OF WEEKS AGO BUT MIXES UP DETAILS OF THIS VISIT AND PREVIOUS, SAYS SHE TOOK HER BLOOD PRESSURE MEDS TONIGHT THE METOPROLOL AND COZAR, FEW MINUITES LATER STATES TOOK MY DIGOXIN TONIGHT, HR 56, KHANH MAT PLACE ON BED, CALL LIGHT IN REACH
--- NOTE | 2019-01-12 01:45 | NUR ---
NOTIFIED BY ASSISTANT FACILITY MANAGER THAT HR WAS RUNNING 36-42, HIEN WAYNE NOTIFIED ORDERS RECIEVED FOR CARDIOLOGY CONSULT AND TO HOLD METOPROLOL AND TO HAVE BRING IN MED IN AM SO CAN SEE WHAT SHE IS TAKING.
[2019-01-12 01:52] VITALS: BP 184/87; BMI 25.0
[2019-01-12 05:00] LABS: BASOPHILS 0.8 % (0-2); EOSINOPHILS 4.9 % (0-7); HEMATOCRIT 38.4 % (36.0-48.0); HEMOGLOBIN 13.6 g/dL (12-16); IMMATURE GRANULOCYTES 1.3 % (0-5); LYMPHOCYTES 22.5 % (15-50); MCH 32.5 pg (26.0-34.0); MCHC 35.4 g/dL (31.0-37.0); MCV 91.9 fL (80.0-100.0); MEAN PLATELET VOLUME 10.2 fL (7.4-10.4); MONOCYTES 13.6 % (2-11); NEUTROPHILS 56.9 % (40-80); PLATELET COUNT 258 10x3/uL (130-400); RBC 4.18 10x6/uL (4.00-5.40); RDW 13.9 % (11.5-14.5)
[2019-01-12 05:01] LABS: WBC 4.7 10x3/uL (4.8-10.8)
[2019-01-12 05:15] LABS: ALBUMIN 2.9 g/dL (3.4-5.0); ALKALINE PHOSPHATASE 120 U/L (46-116); ALT (SGPT) 22 U/L (10-68); BILIRUBIN - TOTAL 0.78 mg/dL (0.2-1.3); CALC OSMOLALITY 275 mosm/kg (275-300); CALCIUM 8.8 mg/dL (8.5-10.1); CARBON DIOXIDE 26.8 mmol/L (21.0-32.0); CHLORIDE - SERUM 100 mmol/L (98-107); CKMB 0.4 U/L (0.0-3.6); CREATINE KINASE 19 UL (21-215); CREATININE - SERUM 0.9 mg/dL (0.6-1.3); MAGNESIUM - SERUM 1.6 mg/dL (1.8-2.4); POTASSIUM - SERUM 3.4 mmol/L (3.5-5.1); PROTEIN - SERUM 6.1 g/dL (6.4-8.2); SODIUM 138 mmol/L (136-145); TROPONIN-I 0.022 ng/mL (0.000-0.060); UREA NITROGEN 11 mg/dL (7-18); eGFR NON AFRICAN AMERICAN 65 mL/min (90-120)
[2019-01-12 05:16] LABS: GLUCOSE 120 mg/dL (74-106)
[2019-01-12 06:35] VITALS: BP 148/79
--- NOTE | 2019-01-12 06:45 | NUR ---
CALLED LEFT MESSAGE TO BRING MEDICATIONS
[2019-01-12 09:11] VITALS: BP 147/65
[2019-01-12 09:19] VITALS: BP 132/65
[2019-01-12 09:21] LABS: CKMB 0.8 U/L (0.0-3.6); CREATINE KINASE 14 UL (21-215); TROPONIN-I 0.019 ng/mL (0.000-0.060)
[2019-01-12 11:26] LABS: APPEARANCE CLEAR (CLEAR); BILIRUBIN NEGATIVE (NEGATIVE); COLOR YELLOW (YELLOW); GLUCOSE NEGATIVE (NEGATIVE); KETONE NEGATIVE (NEGATIVE); NITRITE NEGATIVE (NEGATIVE); PROTEIN TRACE mg/dL (NEGATIVE); UROBILINOGEN NORMAL (NORMAL)
[2019-01-12 11:28] LABS: BACTERIA FEW /hpf (NONE SEEN); EPITHELIAL CELLS RARE /hpf (0-5); RED CELLS - URINE RARE /hpf (0-5); WHITE CELLS - URINE OCC /hpf (0-5)
[2019-01-12 13:34] VITALS: Ht 167.6 cm; Wt 70.3 kg
--- NOTE | 2019-01-12 14:46 | NUR ---
OT NOTE: ATTEMPTED EVAL, HOWEVER, PT CONFUSED AND AGITATED. REFUSED TO MOVE OR ATTEMPT EOB SITTING. WILL ATTEMPT TOMORROW. DIONTE ROLON,OTR/L
[2019-01-12 16:12] LABS: CKMB 0.5 U/L (0.0-3.6); CREATINE KINASE 36 UL (21-215)
[2019-01-12 16:13] LABS: TROPONIN-I < 0.017 ng/mL (0.000-0.060)
[2019-01-12 16:40] VITALS: BP 128/65
--- NOTE | 2019-01-12 17:01 | NUR ---
I have reviewed this patient and I concur with the Shift Assessment completed by the Licensed Practical Nurse today this shift.
[2019-01-12 22:05] VITALS: BP 124/58
[2019-01-13 05:38] LABS: BASOPHILS 0.4 % (0-2); HEMATOCRIT 35.8 % (36.0-48.0); HEMOGLOBIN 12.8 g/dL (12-16); IMMATURE GRANULOCYTES 0.6 % (0-5); LYMPHOCYTES 20.9 % (15-50); MCH 32.2 pg (26.0-34.0); MCHC 35.8 g/dL (31.0-37.0); MCV 90.2 fL (80.0-100.0); MONOCYTES 13.5 % (2-11); NEUTROPHILS 60.6 % (40-80); PLATELET COUNT 221 10x3/uL (130-400); RBC 3.97 10x6/uL (4.00-5.40); RDW 13.3 % (11.5-14.5); WBC 6.8 10x3/uL (4.8-10.8)
[2019-01-13 05:49] VITALS: BP 138/54
[2019-01-13 06:00] LABS: ALBUMIN 2.5 g/dL (3.4-5.0); ANION GAP 10.8 mmol/L (8-16); BILIRUBIN - TOTAL 0.94 mg/dL (0.2-1.3); CALCIUM 8.3 mg/dL (8.5-10.1); CARBON DIOXIDE 28.2 mmol/L (21.0-32.0); CREATININE - SERUM 0.9 mg/dL (0.6-1.3); MAGNESIUM - SERUM 1.3 mg/dL (1.8-2.4); PROTEIN - SERUM 5.8 g/dL (6.4-8.2)
--- NOTE | 2019-01-13 07:25 | NUR ---
CONFUSED AND UPSET THIS AM. PT STATED "WHY AM I IN PENITENTIARY AND WHERE IS MY FAMILY?" THIS NURSE EXPLAINED TO THE PT THAT SHE IS IN THE HOSPITAL AND IS SAFE AND THAT THE PT FAMILY WILL BE HERE LATER TO SEE PT. PT ASKED IF SHE COULD REST FOR A WHILE. THIS NURSE ASSISTED PT BACK INTO BED. PT WAS CONSOLED. NO C/O PAIN. NO S/S OF ACUTE DISTRESS NOTED. UP WITH ASSISTANCE. KHANH ALARM ON. SCDS PRESENT. IV TO LEFT/RIGHT FOREARMS, SL. SITES PATENT WITHOUT REDNESS OR SWELLING. ON TELEMETRY SB 56. ON ELECTROLYTE PROTOCOL, POTASSIUM 3.0 GAVE 40 MEQ OF POTASSIUM AND MAGNESIUM 1.3, GAVE 400 MG OF MAGNESIUM PER PROTOCOL. PT DENIES ANY NEEDS AT THIS TIME. CALL LIGHT IN REACH. WILL CONTINUE TO MONITOR.
[2019-01-13 08:59] VITALS: BP 133/57
--- NOTE | 2019-01-13 11:21 | CN ---
PATIENT NAME:SOLEDAD ANDINO MEDICAL RECORD: [id number] : [birth year] LOCATION:D.MS [id number] ADMIT DATE: 01/11/19 ACCOUNT: [id number] CONSULTING PHYSICIAN: CHAUNCEY GARZA MD REFERRING PHYSICIAN: WOO MAIER MD DATE OF CONSULTATION: 01/12/2019 PSYCHIATRIC CONSULTATION IDENTIFYING DATA: The patient is 73 years old and she is admitted to the hospital on a voluntary basis. CHIEF COMPLAINT: Neurologic changes. HISTORY OF PRESENT ILLNESS: The patient presented to the Emergency Room confused and with speech impediments. She was slurring her words and had a facial droop on the right. It was a sudden onset and she was of course taken to the Emergency Room and admitted. A number of diagnostic tests have been performed including CT of the head, V/Q scan, carotid Doppler, echocardiogram, chest x-ray, and right now an MRI of the head is pending. None of the tests so far have shown anything. The neurologic symptoms have resolved. She apparently has some depressive symptoms and made some comments about not really caring if she lived. I have spoken to her about this and I see no evidence of acute dangerousness. She has almost no psychiatric history. Thirty years ago, she briefly saw a psychiatrist and a therapist for some counseling. She denies any psychotic symptoms. She is fully oriented and has a normal mental status exam right now. ASSESSMENT: Major depression. PLAN: The patient has no evidence of a conversion or functional disorder at all. I would suspect she most likely either had a transient ischemic attack or a small microvascular infarct that was not detected on the CT scan. Obviously, the management of that is fairly straightforward given that there is no underlying obvious pathology that can be addressed. I do not think there is any sort of psychiatric component to this and that the depression she is having is incidental and unrelated to the reasons for this hospitalization. I am going to start her on a low dose of an SSRI. I do not think she needs to see a psychiatrist as an outpatient. I do not think she needs to see an outpatient therapist. She should see her primary care doctor and be reassessed with regard to her mood. If, at that time, symptoms have not improved, I would recommend involving a therapist and/or a psychiatrist depending upon the circumstances. TRANSINT:[id number] Voice Confirmation ID: [id number] DOCUMENT ID: [id number] CHAUNCEY GARZA MD at 1121 CC: [id number] DICTATION DATE: 01/12/19 1623 BODY WORK AUTO TRIMMER: 01/12/19 2018 ADM IN [place] [id number] [place] [id number]
[2019-01-13] MEDS ORDERED: ZOLOFT25 MG PO (11:30)
--- NOTE | 2019-01-13 11:49 | NUR ---
I have reviewed this patient and I concur with the Shift Assessment completed by the Licensed Practical Nurse today this shift.
[2019-01-13 13:25] VITALS: BP 113/55
--- NOTE | 2019-01-13 14:17 | NUR ---
PT DISCHARGED HOME VIA WHEELCHAIR WITH FAMILY ACCOMPANIED BY STAFF. DISCONTINUED IV, CATHETER TIP INTACT. WENT OVER DISCHARGE INSTRUCTIONS WITH PATIENT AND FAMILY, BOTH VERBALIZED UNDERSTANDING. PT DENIES ANY FURTHER NEEDS.
--- NOTE | 2019-01-13 19:43 | NUR ---
OT NOTE: PT COMPLETED ADL MOB WITH SPV. PT COMPLETED BED MOB WITH MOD I. PT COMPLETED TOILETING TASK SPV/MOD I. THANK YOU, FLORA ROY
== END 2019-01-13 14:21 | disposition home or self-care (01) ==
LOC: D.ER 20:22 → D.MS 23:31 → OBSVTIME 23:31 → D.MS 23:31
PROVIDERS: Family Medicine; ADMIT Internal Medicine Nephrology; ATTEND Internal Medicine Nephrology
DX: G45.9 Transient cerebral ischemic attack, unspecified (principal); I77.810 Thoracic aortic ectasia; I11.0 Hypertensive heart disease with heart failure; I50.20 Unspecified systolic (congestive) heart failure; I35.1 Nonrheumatic aortic (valve) insufficiency; I34.0 Nonrheumatic mitral (valve) insufficiency; I07.1 Rheumatic tricuspid insufficiency; E87.6 Hypokalemia; E83.42 Hypomagnesemia; J96.01 Acute respiratory failure with hypoxia; F41.8 Other specified anxiety disorders

== ENCOUNTER → 2020-08-28 10:18 | Outpatient (CLI) | payer BC ==
[2019-07-24 15:05] VITALS: BMI 21.8
[~2020-08-28 10:18] MED LIST changes: +COZAAR50 MG PO; +ZOLOFT25 MG PO
== END | disposition home or self-care (01) ==
LOC: D.MRI 10:18
PROVIDERS: ATTEND Clinical Nurse Specialist Family Health
DX: M54.6 Pain in thoracic spine (principal)

== ENCOUNTER → 2020-10-04 10:37 | Outpatient (CLI) | payer BC ==
[2019-07-24 15:05] VITALS: BMI 21.8
== END | disposition home or self-care (01) ==
LOC: D.MRI 10:37
PROVIDERS: ATTEND Neurological Surgery
DX: M54.12 Radiculopathy, cervical region (principal)